=== PATIENT | female | born 1990 | race American Indian/Alaskan Native ===

== ENCOUNTER 2017-03-27 11:02 | Emergency (ER) | payer SELFPAY | END 2017-03-27 11:03 | disposition left against medical advice (07) | LOC: ED 11:02 | DX: Z04.1 Encounter for examination and observation following transport accident (principal); Z53.21 Procedure and treatment not carried out due to patient leaving prior to being seen by health care provider ==

== ENCOUNTER 2019-05-11 00:12 | Emergency (ER) | payer OTHER, MEDICAID ==
[2019-05-11] MEDS ORDERED: TYLENOL PO ONE (02:58)
[2019-05-11] MEDS ORDERED: IBUPROFEN PO ONE (02:58)
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
--- NOTE | 2019-05-11 03:35 | XRay Report ---
LEFT CLAVICLE 2 VIEWS INDICATION / CLINICAL INFORMATION: Left shoulder pain COMPARISON: None available. FINDINGS: BONES / JOINT(S): No acute fracture or subluxation. No significant arthritis. SOFT TISSUES: No significant abnormality. ADDITIONAL FINDINGS: None. Signer Name: Teodoro Michaud MD Signed: 05/11/2019 3:30 AM Workstation Name: [id number]
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
[2019-05-11 04:49] LABS: HCG Qualitative,Urine Negative (Negative)
[2019-05-11 04:58] LABS: Bilirubin,Urine NEG (Negative); Blood,Urine SM (Negative); Urobilinogen,Urine < 2.0 mg/dL (<2.0)
[2019-05-11 05:10] LABS: Color,Urine YELLOW (Yellow)
[2019-05-11 05:34] VITALS: BP 103/57
== END 2019-05-11 05:30 | disposition home or self-care (01) ==
LOC: ED 00:12
DX: S29.011A Strain of muscle and tendon of front wall of thorax, initial encounter (principal); S43.92XA Sprain of unspecified parts of left shoulder girdle, initial encounter; Z90.49 Acquired absence of other specified parts of digestive tract; Z87.891 Personal history of nicotine dependence; Z88.8 Allergy status to other drugs, medicaments and biological substances; Z79.899 Other long term (current) drug therapy; V49.49XA Driver injured in collision with other motor vehicles in traffic accident, initial encounter; Y93.89 Activity, other specified; Y92.488 Other paved roadways as the place of occurrence of the external cause; Y99.8 Other external cause status
CPT/HCPCS: 71046; 81001; 81025